=== PATIENT | female | born 1950 | race Caucasian/White ===

== ENCOUNTER 2020-07-07 01:09 | Outpatient (CLI) | payer MEDICARE, BC, SELFPAY ==
[2020-07-08 20:26] LABS: COVID-19 RT-PCR Result NEGATIVE (Negative)
== END 2020-07-07 01:29 ==
PROVIDERS: PCP Internal Medicine; Visit Provider Family Medicine
DX: Z11.59 Encounter for screening for other viral diseases (principal); Z01.811 Encounter for preprocedural respiratory examination
CPT/HCPCS: U0003

== ENCOUNTER 2020-07-10 03:01 | Outpatient (CLI) | payer MEDICARE, BC, SELFPAY ==
[2020-07-10] MEDS: Albuterol HFA 18 GM 200 PUFF INH IH (14:47)
[2020-07-10] MEDS: Inhaler, Assist Device 1 EACH MC (14:47)
--- NOTE | 2020-07-14 08:06 | W.PFT ---
Date of service: 07/10/20 Time of Service: 01:19 Pulmonary Function Test Result Interpretation Spirometry: Extremely severe obstructive airways disease with significant bronchodilator response Lung Volumes: No evidence of restriction, moderate to severe hyperinflation and air trapping Diffusion Capacity: Extremely severely reduced even when corrected to alveolar volume Airway Pressure: Severely elevated Impression Extremely severe obstructive airways disease with significant bronchodilator response, this is associated with moderate to severe hyperinflation and air trapping and extremely severe diffusion defect Clinical Correlation therefore is recommended.
== END 2020-07-10 03:21 ==
PROVIDERS: PCP Internal Medicine; Visit Provider Internal Medicine
DX: I27.20 Pulmonary hypertension, unspecified (principal); J44.9 Chronic obstructive pulmonary disease, unspecified; Z87.891 Personal history of nicotine dependence
CPT/HCPCS: 94060; 94726; 94729